=== PATIENT | male | born 1950 ===

== ENCOUNTER 2020-01-23 06:07 | Inpatient (IN) | payer MEDICARE ==
--- NOTE | 2020-01-23 06:24 | ED ---
General Adult HPI - General Chief complaint: Recheck/Abnormal Lab/Rx Stated complaint: lab recheck Time Seen by Provider: 01/23/20 06:09 Source: patient, EMS, RN notes reviewed, old records reviewed Mode of arrival: EMS Limitations: no limitations - History of Present Illness Initial comments: Patient is a 70-year-old male presents emergency department today with chief complaint of positive covid test. Patient lives in [facility] and there is been a known outbreak at this care facility. Patient denies any significant symptoms including cough shortness of breath nausea or vomiting. He reports he's been eating and drinking well. Patient was reportedly sent here for further evaluation and quarantine until negative Covid testing to return back to the rehab facility. Patient does have underlying history of dementia otherwise past medical history is difficult to obtain. - Related Data Home Medications Medication Instructions Recorded Confirmed Acetaminophen Tab [Tylenol] 650 mg PO Q4H PRN 01/23/20 01/23/20 Acetaminophen Tab [Tylenol] 650 mg PO TID@0700,1200,1700 01/23/20 01/23/20 Apixaban [Eliquis] 5 mg PO BID@0700,2100 01/23/20 01/23/20 Atorvastatin [Lipitor] 20 mg PO HS 01/23/20 01/23/20 Lactobacillus Acidophilus 2 tab PO BID@1200,2100 01/23/20 01/23/20 [Acidophilus] Magnesium Hydroxide [Milk of 2,400 mg PO DAILY PRN 01/23/20 01/23/20 Magnesia] Med Plus 60 ml PO TID@0700,1200,1700 01/23/20 01/23/20 Memantine [Namenda] 10 mg PO BID@0700,2100 01/23/20 01/23/20 Allergies Allergy/AdvReac Type Severity Reaction Status Date / Time No Known Allergies Allergy Verified 01/23/20 06:35 Review of Systems ROS Statement: Those systems with pertinent positive or pertinent negative responses have been documented in the HPI. ROS Other: All systems not noted in ROS Statement are negative. Past Medical History Past Medical History: Unable to Obtain History of Any Multi-Drug Resistant Organisms: None Reported Past Surgical History: Unable to Obtain Past Psychological History: No Psychological Hx Reported Smoking Status: Former smoker Past Alcohol Use History: None Reported Past Drug Use History: None Reported General Exam - General Exam Comments Initial Comments: This is a pleasant 70-year-old male. Resting comfortably in bed. Appears in no distress. Patient does have underlying dementia Limitations: no limitations General appearance: alert, in no apparent distress Head exam: Present: atraumatic, normocephalic, normal inspection Eye exam: Present: normal appearance, PERRL, EOMI. Absent: scleral icterus, conjunctival injection, periorbital swelling ENT exam: Present: normal exam, normal oropharynx, mucous membranes moist Neck exam: Present: normal inspection. Absent: tenderness, meningismus, lymphadenopathy Respiratory exam: Present: normal lung sounds bilaterally. Absent: respiratory distress, wheezes, rales, rhonchi, stridor Cardiovascular Exam: Present: regular rate, normal rhythm, normal heart sounds. Absent: systolic murmur, diastolic murmur, rubs, gallop, clicks GI/Abdominal exam: Present: soft, normal bowel sounds. Absent: distended, tenderness, guarding, rebound, rigid Extremities exam: Present: normal inspection, full ROM, normal capillary refill. Absent: tenderness, pedal edema, joint swelling, calf tenderness Back exam: Present: normal inspection Neurological exam: Present: alert, oriented X3, CN II-XII intact Psychiatric exam: Present: normal affect, normal mood Skin exam: Present: warm, dry, intact, normal color. Absent: rash Course Vital Signs 01/23/20 06:12 Temperature 98 F Pulse Rate 82 Respiratory 18 Rate Blood Pressure 131/93 O2 Sat by Pulse 97 Oximetry Medical Decision Making - Medical Decision Making 70-year-old male presents from [facility] with complaints of positive coma test. Denies any significant symptoms. He does have underlying history of dementia. Patient's chest x-ray shows evidence of patchy infiltrates consistent with Coban 19 infection. We will put the Patient on Rocephin to cover for any bacterial source as per protocol. Patient is returned IV fluids. Discussed. Dr. Alexander Discussed the Case with Dr. Phoenix Agrees to Admission. - Radiology Data Radiology results: report reviewed Chest x-ray shows low lung volumes with patchy right basilar acute infiltrate or rectal atelectasis. Disposition Clinical Impression: COVID-19, Pulmonary infiltrates on CXR Disposition: ADMITTED IP TO THIS HOSP Condition: Stable Is patient prescribed a controlled substance at d/c from ED?: No Referrals: Jordan Rojas MD [Primary Care Provider] - 1-2 days Time of Disposition: 07:27
--- NOTE | 2020-01-23 07:02 | XR ---
EXAMINATION TYPE: XR chest 1V DATE OF EXAM: 01/23/2020 COMPARISON: NONE HISTORY: covid positive, no symptoms. TECHNIQUE: Single AP portable frontal upright view of the chest is obtained. FINDINGS: There is low lung volumes with patchy right basilar opacity. No pleural effusion or pneumo thorax seen bilaterally. The cardiac silhouette size is upper limits of normal with dual-lead pacemak er. Degenerative change left glenohumeral joint. Colonic interposition incidentally noted. IMPRESSION: Low lung volumes with patchy right basilar acute infiltrate and/or atelectasis.
[2020-01-23] MEDS ORDERED: SODIUM CHLORIDE 0.9% 1,000 ML IV ONE (07:27)
[2020-01-23] MEDS ORDERED: NALOXONE 0.4 MG/ML 1 ML VIAL IV PRN (07:28)
[2020-01-23] MEDS ORDERED: ONDANSETRON 4 MG/2 ML VIAL IVP PRN (07:28)
[2020-01-23] MEDS ORDERED: HYDROcodone/APAP 5-325MG 1 EACH TAB PO PRN (07:28)
[2020-01-23] MEDS ORDERED: ACETAMINOPHEN TAB 325 MG TAB PO PRN (07:28)
[2020-01-23] MEDS ORDERED: IBUPROFEN 400 MG TAB PO PRN (07:28)
[2020-01-23] MEDS ORDERED: MAGNESIUM HYDROXIDE 2,400 MG/10 ML CUP PO PRN (07:29)
[2020-01-23] MEDS: SODIUM CHLORIDE 0.9% 1,000 ML IV SCH ×2 (08:20→16:40)
[2020-01-23 08:31] LABS: Basophils # (A) 0.1 k/uL (0-0.2); Basophils % (A) 2 %; Eosinophils # (A) 0.3 k/uL (0-0.7); Eosinophils % (A) 4 %; HCT 52.1 % (39.0-53.0); HGB 16.9 gm/dL (13.0-17.5); Lymphocytes # (A) 1.1 k/uL (1.0-4.8); Lymphocytes % (A) 15 %; MCH 30.9 pg (25.0-35.0); MCHC 32.5 g/dL (31.0-37.0); MCV 95.2 fL (80.0-100.0); Mean Platelet Volume 8.8; Monocytes # (A) 0.6 k/uL (0-1.0); Monocytes % (A) 8 %; Neutrophils # (A) 4.8 k/uL (1.3-7.7); Neutrophils % (A) 68 %; Platelet Count 162 k/uL (150-450); RBC 5.48 m/uL (4.30-5.90); RDW 13.7 % (11.5-15.5); WBC 7.1 k/uL (3.8-10.6)
[2020-01-23 10:20] LABS: ALT 32 U/L (4-49); AST 31 U/L (17-59); African American GFR (CKD) >90 (>60 ml/min/1.73 sqM); Albumin 3.7 g/dL (3.5-5.0); Albumin/Globulin Ratio 1.3; Alkaline Phosphatase 81 U/L (38-126); Anion Gap 5 mmol/L; Blood Urea Nitrogen 14 mg/dL (9-20); Calcium 8.8 mg/dL (8.4-10.2); Carbon Dioxide 27 mmol/L (22-30); Chloride 108 mmol/L (98-107); Globulin 2.9 g/dL; Glucose 130 mg/dL (74-99); LDH 455 U/L (313-618); Non-African American GFR(CKD) 88 (>60 ml/min/1.73 sqM); Potassium 4.5 mmol/L (3.5-5.1); Sodium 140 mmol/L (137-145); Total Bilirubin 0.7 mg/dL (0.2-1.3); Total Protein 6.6 g/dL (6.3-8.2)
[2020-01-23 10:22] LABS: D-Dimer 0.36 mg/L FEU (<0.60); INR 1.1 (<1.2); Prothrombin Time 10.8 sec (9.0-12.0)
[2020-01-23 10:33] LABS: C Reactive Protein <5.0 mg/L (<10.0)
[2020-01-23] MEDS: PANTOPRAZOLE 40 MG/10 ML VIAL IV SCH (10:38)
[2020-01-23] MEDS ORDERED: LORazepam 2 MG/ML INJ IV STA (11:13)
[2020-01-23] MEDS ORDERED: [UNRECOGNIZED DRUG - OTHER] PO SCH (12:00)
[2020-01-23 15:22] LABS: Ferritin 399.8 ng/mL (22.0-322.0)
[2020-01-23] MEDS: LACTOBACILLUS ACIDOPH & BULGAR 1 EACH PACKET PO SCH ×2 (15:56→20:33)
[2020-01-23] MEDS: ATORVASTATIN 20 MG TAB PO SCH (20:33)
[2020-01-23] MEDS: MEMANTINE 10 MG TAB PO SCH (20:33)
[2020-01-23] MEDS: APIXABAN 5 MG TAB PO SCH (20:33)
--- NOTE | 2020-01-23 22:50 | P.HPIM ---
History of Present Illness H&P Date: 01/23/20 Chief Complaint: COVID positive History of presenting complaint: This is a 70-year-old patient resident of [facility]. Chronic stable medical conditions include anxiety, BPH, dementia, hyperlipidemia, permanent pacemaker, gait dysfunction, hyperlipidemia, atrial fibrillation. Patient tested positive for COVID 19 via PCR. Patient does not have any new symptoms. No reported cough shortness of breath nausea vomiting. Patient oral intake has been fair. Patient has some baseline cognitive impairment. Unable to give a detailed history. The [facility] facility has no ways of keeping the patient under quarantine. Hence patient be transferred down here. Review of systems: GEN.: None EYES: None HEENT: None NECK: None RESPIRATORY: None CARDIOVASCULAR: None GASTROINTESTINAL: None GENITOURINARY: None MUSCULOSKELETAL: Some joint pains LYMPHATICS: None HEMATOLOGICAL: None PSYCHIATRY: Forgetful NEUROLOGICAL: None Past medical history to include: Anxiety, BPH, dementia, hyperlipidemia, permanent pacemaker, gait dysfunction, hypertension, atrial fibrillation, medical debility Social history: Resident at [facility]. Needs assistance with all ADLs. Can't feed himself. On a dysphagia chopped diet. Stop smoking in 2009. Smoked for many years. Physical examination: VITAL SIGNS: 98, 82, 18, 131/93, 97% room air GENERAL: BMI 25.7, laying in bed, not in distress. EYES: Pupils equal. Conjunctiva normal. HEENT: External appearance of nose and ears normal, oral cavity grossly normal. NECK: JVD not raised; masses not palpable. HEART: First and second heart sounds are normal; no edema. LUNGS: Respiratory rate increased; decreased breath sounds. ABDOMEN: Soft, nontender, liver spleen not palpable, no masses palpable. PSYCH: Patient able tonsil simple question]l. MUSKO skeletal: Evidence of OA NEUROLOGICAL: Cranial nerves grossly intact; no facial asymmetry, power and sensation grossly intact. LYMPHATICS: No lymph nodes palpable in the axilla and neck INVESTIGATIONS, reviewed in the clinical context: White count 7.1 hemoglobin 16.9 platelets 162 d-dimer 0.36 potassium 4.5 creatinine 0.85 Ferritin 399 LDH 455 CRP less than 5 pro-calcitonin 0.06 EKG tracing personally reviewed by me-paced rhythm Chest x-ray film personally reviewed by me-right basilar infiltrate Assessment: -Asymptomatic COVID 19 pneumonia. Patient has no fever no cough no shortness of breath no hypoxia. -Anxiety not otherwise specified -BPH -Major cognitive impairment from late-onset dose of his dementia -GERD -Permanent pacemaker -Tolerating a dysfunction -Essential hypertension -Persistent atrial fibrillation -CODE STATUS DO NOT RESUSCITATE Plan: Home medications were continued. Continue indication for any other medications for the COVID 19. Repeat testing will be done tomorrow. COVID 19 precautions are to continue. Past Medical History Past Medical History: Atrial Fibrillation, Cancer, Dementia, Hyperlipidemia, Hypertension, Prostate Disorder, Vascular Disorder Additional Past Medical History / Comment(s): Vascular dementia, dysphagia, pt falls/wanders, BPH/prostate cancer with surgery, UTI-recent and completed antibiotic, incontinent of urine/stool History of Any Multi-Drug Resistant Organisms: None Reported Past Surgical History: Pacemaker, Prostate Surgery Additional Past Surgical History / Comment(s): Prostate surgery for prostate cancer-took spot out. Past Anesthesia/Blood Transfusion Reactions: No Reported Reaction Type of Cardiac Device: Permanent Pacemaker Device Placement Date:: about 2009 Smoking Status: Former smoker - Past Family History Father Family Medical History: Diabetes Mellitus Mother Family Medical History: Cancer Medications and Allergies Home Medications Medication Instructions Recorded Confirmed Type Acetaminophen Tab [Tylenol] 650 mg PO Q4H PRN 01/23/20 01/23/20 History Acetaminophen Tab [Tylenol] 650 mg PO TID@0700,1200,1700 01/23/20 01/23/20 History Apixaban [Eliquis] 5 mg PO BID@0700,2100 01/23/20 01/23/20 History Atorvastatin [Lipitor] 20 mg PO HS 01/23/20 01/23/20 History Lactobacillus Acidophilus 2 tab PO BID@1200,2100 01/23/20 01/23/20 History [Acidophilus] Magnesium Hydroxide [Milk of 2,400 mg PO DAILY PRN 01/23/20 01/23/20 History Magnesia] Med Plus 60 ml PO TID@0700,1200,1700 01/23/20 01/23/20 History Memantine [Namenda] 10 mg PO BID@0700,2100 01/23/20 01/23/20 History Allergies Allergy/AdvReac Type Severity Reaction Status Date / Time No Known Allergies Allergy Verified 01/23/20 06:35 Physical Exam Vitals: Vital Signs Temp Pulse Pulse Resp BP BP Pulse Ox 01/23/20 19:46 97 20 01/23/20 19:37 100.1 F H 97 20 127/73 95 01/23/20 16:32 97.5 F L 107 H 18 127/84 97 01/23/20 16:16 98.4 F 78 16 105/71 96 01/23/20 16:00 98.4 F 78 16 105/71 96 01/23/20 10:38 98 F 98 16 126/93 96 01/23/20 08:21 98.4 F 102 H 15 129/79 99 01/23/20 06:12 98 F 82 18 131/93 97 Intake and Output 01/23/20 01/23/20 01/23/20 06:59 14:59 22:59 Other: Voiding Method Diaper # Voids 1 Weight 90.718 kg 90.718 kg Results CBC & Chem 7: 01/23/20 08:19 01/23/20 09:18 Labs: Abnormal Lab Results - Last 24 Hours (Table) 01/23/20 Range/Units 09:18 Chloride 108 H (98-107) mmol/L Glucose 130 H (74-99) mg/dL Ferritin 399.8 H (22.0-322.0) ng/mL Thrombosis Risk Factor Assmnt - Choose All That Apply Any of the Below Risk Factors Present?: Yes Other Risk Factors: Yes Each Risk Factor Represents 2 Points: Age 61-74 years, Malignancy Other congenital or acquired thrombophilia - If yes, enter type in comment: No Thrombosis Risk Factor Assessment Total Risk Factor Score: 4 Thrombosis Risk Factor Assessment Level: Moderate Risk
[2020-01-24] MEDS: SODIUM CHLORIDE 0.9% 1,000 ML IV SCH ×2 (04:56→14:54)
[2020-01-24] MEDS: APIXABAN 5 MG TAB PO SCH ×3 (06:54→21:06)
[2020-01-24] MEDS: PANTOPRAZOLE 40 MG/10 ML VIAL IV SCH (06:54)
[2020-01-24] MEDS: MEMANTINE 10 MG TAB PO SCH ×3 (06:54→21:06)
[2020-01-24] MEDS: LACTOBACILLUS ACIDOPH & BULGAR 1 EACH PACKET PO SCH ×2 (11:37→20:44)
[2020-01-24] MEDS ORDERED: ZIPRASIDONE 20 MG VIAL IM STA (16:46)
[2020-01-24] MEDS: ATORVASTATIN 20 MG TAB PO SCH (20:44)
[2020-01-24] MEDS: QUEtiapine 25 MG TAB PO SCH ×2 (20:44→21:06)
--- NOTE | 2020-01-24 23:08 | P.PN ---
Progress Note - Text Progress Note Date: 01/24/20 Chief Complaint: COVID positive History of presenting complaint: This is a 70-year-old patient resident of [facility]. Chronic stable medical conditions include anxiety, BPH, dementia, hyperlipidemia, permanent pacemaker, gait dysfunction, hyperlipidemia, atrial fibrillation. Patient tested positive for COVID 19 via PCR. Patient does not have any new symptoms. No reported cough shortness of breath nausea vomiting. Patient oral intake has been fair. Patient has some baseline cognitive impairment. Unable to give a detailed history. The [facility] facility has no ways of keeping the patient under quarantine. Hence patient be transferred down here. Admitted with asymptomatic COVID 19 pneumonia. Today-has a sitter. Was a bit agitated this afternoon. Senokot was added. 1 dose of Geodon 10 mg to be given late afternoon. Oral intake 25-50% Progress U of systems was attempted Active Medications Acetaminophen (Acetaminophen Tab 325 Mg Tab) 650 mg PO Q6HR PRN PRN Reason: Mild Pain or Fever > 100.5 Hydrocodone Bitart/Acetaminophen (Hydrocodone/Apap 5-325mg 1 Each Tab) 1 each PO Q4HR PRN PRN Reason: Moderate Pain Apixaban (Apixaban 5 Mg Tab) 5 mg PO BID@0700,2100 [facility] Last Admin: 01/24/20 21:06 Dose: Not Given Documented by: Atorvastatin Calcium (Atorvastatin 20 Mg Tab) 20 mg PO HS [facility] Last Admin: 01/24/20 20:44 Dose: 20 mg Documented by: Sodium Chloride (Saline 0.9%) 1,000 mls @ 100 mls/hr IV .Q10H [facility] Last Admin: 01/24/20 14:54 Dose: Not Given Documented by: Ibuprofen (Ibuprofen 400 Mg Tab) 400 mg PO Q6HR PRN PRN Reason: Mild Pain or Fever > 100.5 Lactobacillus Acidoph/Bulgaricus (Lactobacillus Acidoph & Bulgar 1 Each Packet) 2 each PO BID@1200,2100 [facility] Last Admin: 01/24/20 20:44 Dose: 2 each Documented by: Magnesium Hydroxide (Magnesium Hydroxide 2,400 Mg/10 Ml Cup) 2,400 mg PO DAILY PRN PRN Reason: Constipation Memantine (Memantine 10 Mg Tab) 10 mg PO BID@0700,2100 [facility] Last Admin: 01/24/20 21:06 Dose: Not Given Documented by: Naloxone HCl (Naloxone 0.4 Mg/Ml 1 Ml Vial) 0.2 mg IV Q2M PRN PRN Reason: Opioid Reversal Ondansetron HCl (Ondansetron 4 Mg/2 Ml Vial) 4 mg IVP Q8HR PRN PRN Reason: Nausea And Vomiting Pantoprazole Sodium (Pantoprazole 40 Mg Tablet) 40 mg PO AC-BRKFST [facility] Quetiapine Fumarate (Quetiapine 25 Mg Tab) 12.5 mg PO BID [facility] Last Admin: 01/24/20 21:06 Dose: Not Given Documented by: Physical examination: VITAL SIGNS: 98.1, 63, 17, 136 and 72, 94% room air GENERAL: BMI 25.7, laying in bed, not in distress. EYES: Pupils equal. Conjunctiva normal. NECK: JVD not raised; masses not palpable. HEART: First and second heart sounds are normal; no edema. LUNGS: Respiratory rate increased; decreased breath sounds. ABDOMEN: Soft, nontender, liver spleen not palpable, no masses palpable. PSYCH: Answering occasional question l. INVESTIGATIONS, reviewed in the clinical context: White count 7.1 hemoglobin 16.9 platelets 162 d-dimer 0.36 potassium 4.5 creatinine 0.85 Ferritin 399 LDH 455 CRP less than 5 pro-calcitonin 0.06 EKG tracing personally reviewed by me-paced rhythm Chest x-ray film personally reviewed by me-right basilar infiltrate Assessment: -Asymptomatic COVID 19 pneumonia. Patient has no fever no cough no shortness of breath no hypoxia. -Anxiety not otherwise specified -BPH -Major cognitive impairment from late-onset dose of his dementia, with acute agitation possibly because of a new surrounding. -GERD -Permanent pacemaker -Tolerating a dysfunction -Essential hypertension -Persistent atrial fibrillation -CODE STATUS DO NOT RESUSCITATE Plan: Continue with COVID 19 restrictions. Started on Seroquel. Other medications to continue
[2020-01-25] MEDS: SODIUM CHLORIDE 0.9% 1,000 ML IV SCH ×3 (00:34→19:06)
[2020-01-25] MEDS: PANTOPRAZOLE 40 MG TABLET PO SCH (06:56)
[2020-01-25] MEDS: QUEtiapine 25 MG TAB PO SCH ×2 (06:57→19:54)
[2020-01-25] MEDS: MEMANTINE 10 MG TAB PO SCH ×2 (06:57→19:54)
[2020-01-25] MEDS: APIXABAN 5 MG TAB PO SCH ×2 (06:58→19:54)
[2020-01-25] MEDS: LACTOBACILLUS ACIDOPH & BULGAR 1 EACH PACKET PO SCH ×2 (11:43→19:54)
--- NOTE | 2020-01-25 15:45 | P.PN ---
Progress Note - Text Progress Note Date: 01/25/20 Chief Complaint: COVID positive History of presenting complaint: This is a 70-year-old patient resident of [facility]. Chronic stable medical conditions include anxiety, BPH, dementia, hyperlipidemia, permanent pacemaker, gait dysfunction, hyperlipidemia, atrial fibrillation. Patient tested positive for COVID 19 via PCR. Patient does not have any new symptoms. No reported cough shortness of breath nausea vomiting. Patient oral intake has been fair. Patient has some baseline cognitive impairment. Unable to give a detailed history. The [facility] facility has no ways of keeping the patient under quarantine. Hence patient be transferred down here. Admitted with asymptomatic COVID 19 pneumonia. Patient got agitated. Was started on Seroquel. Today-has been, today. More restful. Oral intake variable. review of systems was attempted Active Medications Acetaminophen (Acetaminophen Tab 325 Mg Tab) 650 mg PO Q6HR PRN PRN Reason: Mild Pain or Fever > 100.5 Hydrocodone Bitart/Acetaminophen (Hydrocodone/Apap 5-325mg 1 Each Tab) 1 each PO Q4HR PRN PRN Reason: Moderate Pain Last Admin: 01/25/20 06:10 Dose: 1 each Documented by: Apixaban (Apixaban 5 Mg Tab) 5 mg PO BID@0700,2100 [facility] Last Admin: 01/25/20 06:58 Dose: 5 mg Documented by: Atorvastatin Calcium (Atorvastatin 20 Mg Tab) 20 mg PO HS [facility] Last Admin: 01/24/20 20:44 Dose: 20 mg Documented by: Sodium Chloride (Saline 0.9%) 1,000 mls @ 100 mls/hr IV .Q10H [facility] Last Admin: 01/25/20 06:59 Dose: Not Given Documented by: Ibuprofen (Ibuprofen 400 Mg Tab) 400 mg PO Q6HR PRN PRN Reason: Mild Pain or Fever > 100.5 Lactobacillus Acidoph/Bulgaricus (Lactobacillus Acidoph & Bulgar 1 Each Packet) 2 each PO BID@1200,2100 [facility] Last Admin: 01/25/20 11:43 Dose: 2 each Documented by: Magnesium Hydroxide (Magnesium Hydroxide 2,400 Mg/10 Ml Cup) 2,400 mg PO DAILY PRN PRN Reason: Constipation Memantine (Memantine 10 Mg Tab) 10 mg PO BID@0700,2100 [facility] Last Admin: 01/25/20 06:57 Dose: 10 mg Documented by: Naloxone HCl (Naloxone 0.4 Mg/Ml 1 Ml Vial) 0.2 mg IV Q2M PRN PRN Reason: Opioid Reversal Ondansetron HCl (Ondansetron 4 Mg/2 Ml Vial) 4 mg IVP Q8HR PRN PRN Reason: Nausea And Vomiting Pantoprazole Sodium (Pantoprazole 40 Mg Tablet) 40 mg PO AC-BRKFST [facility] Last Admin: 01/25/20 06:56 Dose: 40 mg Documented by: Quetiapine Fumarate (Quetiapine 25 Mg Tab) 12.5 mg PO BID [facility] Last Admin: 01/25/20 06:57 Dose: 12.5 mg Documented by: Physical examination: VITAL SIGNS: 97.4, 64, 17, 114/64, 94% room air GENERAL: Laying in bed, comfortable EYES: Pupils equal. Conjunctiva normal. NECK: JVD not raised; masses not palpable. HEART: First and second heart sounds are normal; no edema. LUNGS: Respiratory rate increased; decreased breath sounds. ABDOMEN: Soft, nontender, liver spleen not palpable, no masses palpable. PSYCH: Answering occasional question. INVESTIGATIONS, reviewed in the clinical context: White count 7.1 hemoglobin 16.9 platelets 162 d-dimer 0.36 potassium 4.5 creatinine 0.85 Ferritin 399 LDH 455 CRP less than 5 pro-calcitonin 0.06 EKG tracing personally reviewed by me-paced rhythm Chest x-ray film personally reviewed by me-right basilar infiltrate Assessment: -Asymptomatic COVID 19 pneumonia. Patient has no fever no cough no shortness of breath no hypoxia. -Anxiety not otherwise specified -BPH -Major cognitive impairment from late-onset dose of his dementia, with acute agitation possibly because of a new surrounding.-Started on Seroquel -GERD -Permanent pacemaker -Tolerating a dysfunction -Essential hypertension -Persistent atrial fibrillation -CODE STATUS DO NOT RESUSCITATE Plan: Continue with COVID 19 restrictions. Continue current medication treatment plan.
[2020-01-25] MEDS: ATORVASTATIN 20 MG TAB PO SCH (19:54)
[2020-01-26] MEDS: SODIUM CHLORIDE 0.9% 1,000 ML IV SCH ×2 (05:32→13:31)
[2020-01-26] MEDS: MEMANTINE 10 MG TAB PO SCH ×2 (07:45→20:17)
[2020-01-26] MEDS: APIXABAN 5 MG TAB PO SCH ×2 (07:45→20:17)
[2020-01-26] MEDS: QUEtiapine 25 MG TAB PO SCH ×2 (07:46→20:17)
[2020-01-26] MEDS: PANTOPRAZOLE 40 MG TABLET PO SCH (07:46)
[2020-01-26] MEDS: LACTOBACILLUS ACIDOPH & BULGAR 1 EACH PACKET PO SCH ×2 (10:12→20:17)
--- NOTE | 2020-01-26 19:35 | P.PN ---
Progress Note - Text Progress Note Date: 01/26/20 Chief Complaint: COVID positive History of presenting complaint: This is a 70-year-old patient resident of [facility]. Chronic stable medical conditions include anxiety, BPH, dementia, hyperlipidemia, permanent pacemaker, gait dysfunction, hyperlipidemia, atrial fibrillation. Patient tested positive for COVID 19 via PCR. Patient does not have any new symptoms. No reported cough shortness of breath nausea vomiting. Patient oral intake has been fair. Patient has some baseline cognitive impairment. Unable to give a detailed history. The [facility] facility has no ways of keeping the patient under quarantine. Hence patient be transferred down here. Admitted with asymptomatic COVID 19 pneumonia. Patient got agitated. Was started on Seroquel.-Settle down. Today-eating well. Sitting up. Comfortable. No shortness of breath. No fever. review of systems was attempted Active Medications Acetaminophen (Acetaminophen Tab 325 Mg Tab) 650 mg PO Q6HR PRN PRN Reason: Mild Pain or Fever > 100.5 Hydrocodone Bitart/Acetaminophen (Hydrocodone/Apap 5-325mg 1 Each Tab) 1 each PO Q4HR PRN PRN Reason: Moderate Pain Last Admin: 01/25/20 06:10 Dose: 1 each Documented by: Apixaban (Apixaban 5 Mg Tab) 5 mg PO BID@0700,2100 [facility] Last Admin: 01/26/20 07:45 Dose: 5 mg Documented by: Atorvastatin Calcium (Atorvastatin 20 Mg Tab) 20 mg PO HS [facility] Last Admin: 01/25/20 19:54 Dose: 20 mg Documented by: Sodium Chloride (Saline 0.9%) 1,000 mls @ 100 mls/hr IV .Q10H [facility] Last Admin: 01/26/20 13:31 Dose: Not Given Documented by: Ibuprofen (Ibuprofen 400 Mg Tab) 400 mg PO Q6HR PRN PRN Reason: Mild Pain or Fever > 100.5 Lactobacillus Acidoph/Bulgaricus (Lactobacillus Acidoph & Bulgar 1 Each Packet) 2 each PO BID@1200,2100 [facility] Last Admin: 01/26/20 10:12 Dose: Not Given Documented by: Magnesium Hydroxide (Magnesium Hydroxide 2,400 Mg/10 Ml Cup) 2,400 mg PO DAILY PRN PRN Reason: Constipation Memantine (Memantine 10 Mg Tab) 10 mg PO BID@0700,2100 [facility] Last Admin: 01/26/20 07:45 Dose: 10 mg Documented by: Naloxone HCl (Naloxone 0.4 Mg/Ml 1 Ml Vial) 0.2 mg IV Q2M PRN PRN Reason: Opioid Reversal Ondansetron HCl (Ondansetron 4 Mg/2 Ml Vial) 4 mg IVP Q8HR PRN PRN Reason: Nausea And Vomiting Pantoprazole Sodium (Pantoprazole 40 Mg Tablet) 40 mg PO AC-BRKFST [facility] Last Admin: 01/26/20 07:46 Dose: 40 mg Documented by: Quetiapine Fumarate (Quetiapine 25 Mg Tab) 12.5 mg PO BID [facility] Last Admin: 01/26/20 07:46 Dose: 12.5 mg Documented by: Physical examination: VITAL SIGNS: 98.1, 77, 16, 98.58, 94% room air GENERAL: Sitting up in bed, comfortable EYES: Pupils equal. Conjunctiva normal. NECK: JVD not raised; masses not palpable. HEART: First and second heart sounds are normal; no edema. LUNGS: Respiratory rate increased; decreased breath sounds. ABDOMEN: Soft, nontender, liver spleen not palpable, no masses palpable. PSYCH: Answering simple questions INVESTIGATIONS, reviewed in the clinical context: Later this evening-COVID 19 P/Cr-not detected White count 7.1 hemoglobin 16.9 platelets 162 d-dimer 0.36 potassium 4.5 creatinine 0.85 Ferritin 399 LDH 455 CRP less than 5 pro-calcitonin 0.06 EKG tracing personally reviewed by me-paced rhythm Chest x-ray film personally reviewed by me-right basilar infiltrate Assessment: -Asymptomatic COVID 19 pneumonia. Patient has no fever no cough no shortness of breath no hypoxia. Repeat COVID testing is come back negative later today. -Anxiety not otherwise specified -BPH -Major cognitive impairment from late-onset dose of his dementia, with acute agitation possibly because of a new surrounding.-Started on Seroquel -GERD -Permanent pacemaker -Tolerating a dysfunction -Essential hypertension -Persistent atrial fibrillation -CODE STATUS DO NOT RESUSCITATE Plan: Continue current medication treatment plan. DC to rehab tomorrow.
[2020-01-26] MEDS: ATORVASTATIN 20 MG TAB PO SCH (20:17)
[2020-01-27] MEDS: SODIUM CHLORIDE 0.9% 1,000 ML IV SCH ×3 (00:39→19:52)
[2020-01-27] MEDS: PANTOPRAZOLE 40 MG TABLET PO SCH (07:22)
[2020-01-27] MEDS: APIXABAN 5 MG TAB PO SCH ×2 (07:22→20:00)
[2020-01-27] MEDS: QUEtiapine 25 MG TAB PO SCH ×2 (07:22→20:00)
[2020-01-27] MEDS: MEMANTINE 10 MG TAB PO SCH ×2 (07:22→20:00)
[2020-01-27] MEDS: LACTOBACILLUS ACIDOPH & BULGAR 1 EACH PACKET PO SCH ×2 (11:36→20:00)
--- NOTE | 2020-01-27 17:49 | P.PN ---
Progress Note - Text Progress Note Date: 01/27/20 Chief Complaint: COVID positive History of presenting complaint: This is a 70-year-old patient resident of [facility]. Chronic stable medical conditions include anxiety, BPH, dementia, hyperlipidemia, permanent pacemaker, gait dysfunction, hyperlipidemia, atrial fibrillation. Patient tested positive for COVID 19 via PCR. Patient does not have any new symptoms. No reported cough shortness of breath nausea vomiting. Patient oral intake has been fair. Patient has some baseline cognitive impairment. Unable to give a detailed history. The [facility] facility has no ways of keeping the patient under quarantine. Hence patient be transferred down here. Admitted with asymptomatic COVID 19 pneumonia. Patient got agitated. Was started on Seroquel.-Settle down. Today-laying in bed, comfortable. Oral intake fair. No infection symptoms. review of systems was attempted Active Medications Acetaminophen (Acetaminophen Tab 325 Mg Tab) 650 mg PO Q6HR PRN PRN Reason: Mild Pain or Fever > 100.5 Hydrocodone Bitart/Acetaminophen (Hydrocodone/Apap 5-325mg 1 Each Tab) 1 each PO Q4HR PRN PRN Reason: Moderate Pain Last Admin: 01/25/20 06:10 Dose: 1 each Documented by: Apixaban (Apixaban 5 Mg Tab) 5 mg PO BID@0700,2100 [facility] Last Admin: 01/27/20 07:22 Dose: 5 mg Documented by: Atorvastatin Calcium (Atorvastatin 20 Mg Tab) 20 mg PO HS [facility] Last Admin: 01/26/20 20:17 Dose: 20 mg Documented by: Sodium Chloride (Saline 0.9%) 1,000 mls @ 100 mls/hr IV .Q10H [facility] Last Admin: 01/27/20 11:20 Dose: Not Given Documented by: Ibuprofen (Ibuprofen 400 Mg Tab) 400 mg PO Q6HR PRN PRN Reason: Mild Pain or Fever > 100.5 Lactobacillus Acidoph/Bulgaricus (Lactobacillus Acidoph & Bulgar 1 Each Packet) 2 each PO BID@1200,2100 [facility] Last Admin: 01/27/20 11:36 Dose: 2 each Documented by: Magnesium Hydroxide (Magnesium Hydroxide 2,400 Mg/10 Ml Cup) 2,400 mg PO DAILY PRN PRN Reason: Constipation Memantine (Memantine 10 Mg Tab) 10 mg PO BID@0700,2100 [facility] Last Admin: 01/27/20 07:22 Dose: 10 mg Documented by: Naloxone HCl (Naloxone 0.4 Mg/Ml 1 Ml Vial) 0.2 mg IV Q2M PRN PRN Reason: Opioid Reversal Ondansetron HCl (Ondansetron 4 Mg/2 Ml Vial) 4 mg IVP Q8HR PRN PRN Reason: Nausea And Vomiting Pantoprazole Sodium (Pantoprazole 40 Mg Tablet) 40 mg PO AC-[id number] [facility] Last Admin: 01/27/20 07:22 Dose: 40 mg Documented by: Quetiapine Fumarate (Quetiapine 25 Mg Tab) 12.5 mg PO BID [facility] Last Admin: 01/27/20 07:22 Dose: 12.5 mg Documented by: Physical examination: VITAL SIGNS: 96.9, 70, 18, 115/68, 96% room air GENERAL: Laying in bed comfortable EYES: Pupils equal. Conjunctiva normal. NECK: JVD not raised; masses not palpable. HEART: First and second heart sounds are normal; no edema. LUNGS: Respiratory rate normal; decreased breath sounds. ABDOMEN: Soft, nontender, liver spleen not palpable, no masses palpable. PSYCH: Answering simple questions INVESTIGATIONS, reviewed in the clinical context: -COVID 19 P/Cr-not detected White count 7.1 hemoglobin 16.9 platelets 162 d-dimer 0.36 potassium 4.5 creatinine 0.85 Ferritin 399 LDH 455 CRP less than 5 pro-calcitonin 0.06 EKG tracing personally reviewed by me-paced rhythm Chest x-ray film personally reviewed by me-right basilar infiltrate Assessment: -Asymptomatic COVID 19 pneumonia. Patient has no fever no cough no shortness of breath no hypoxia. Repeat COVID testing is come back negative -Anxiety not otherwise specified -BPH -Major cognitive impairment from late-onset dose of his dementia, with acute agitation possibly because of a new surrounding.-Started on Seroquel -GERD -Permanent pacemaker -Tolerating a dysfunction -Essential hypertension -Persistent atrial fibrillation -CODE STATUS DO NOT RESUSCITATE Plan: Continue current medication. Pending insurance authorization for transfer.
[2020-01-27] MEDS: ATORVASTATIN 20 MG TAB PO SCH (20:00)
[2020-01-28] MEDS: MEMANTINE 10 MG TAB PO SCH (08:18)
[2020-01-28] MEDS: SODIUM CHLORIDE 0.9% 1,000 ML IV SCH ×2 (08:18→18:07)
[2020-01-28] MEDS: QUEtiapine 25 MG TAB PO SCH (08:18)
[2020-01-28] MEDS: APIXABAN 5 MG TAB PO SCH (08:18)
[2020-01-28] MEDS: PANTOPRAZOLE 40 MG TABLET PO SCH (08:18)
[2020-01-28] MEDS: LACTOBACILLUS ACIDOPH & BULGAR 1 EACH PACKET PO SCH (12:13)
--- NOTE | 2020-01-28 13:53 | P.DS ---
Providers Date of admission: 01/23/20 07:28 Expected date of discharge: 01/28/20 Attending physician: Miller Garrett Primary care physician: Jordan Rojas [facility] Course: Chief Complaint: COVID positive History of presenting complaint: This is a 70-year-old patient resident of [facility]. Chronic stable medical conditions include anxiety, BPH, dementia, hyperlipidemia, permanent pacemaker, gait dysfunction, hyperlipidemia, atrial fibrillation. Patient tested positive for COVID 19 via PCR. Patient does not have any new symptoms. No reported cough shortness of breath nausea vomiting. Patient oral intake has been fair. Patient has some baseline cognitive impairment. Unable to give a detailed history. The [facility] facility has no ways of keeping the patient under quarantine. Hence patient be transferred down here. Admitted with asymptomatic COVID 19 pneumonia. Patient got agitated. Was started on Seroquel.-Settle down. Today-l comfortable. Eating. No respiratory symptoms. No fever. Physical examination: VITAL SIGNS: 98.4, 16, 17, 106/65, 96% room air GENERAL: Laying in bed comfortable EYES: Pupils equal. Conjunctiva normal. NECK: JVD not raised; masses not palpable. HEART: First and second heart sounds are normal; no edema. LUNGS: Respiratory rate normal; decreased breath sounds. ABDOMEN: Soft, nontender, liver spleen not palpable, no masses palpable. PSYCH: Answering simple questions INVESTIGATIONS, reviewed in the clinical context: -COVID 19 P/Cr-not detected-January 25 White count 7.1 hemoglobin 16.9 platelets 162 d-dimer 0.36 potassium 4.5 creati nine 0.85 Ferritin 399 LDH 455 CRP less than 5 pro-calcitonin 0.06 EKG tracing personally reviewed by me-paced rhythm Chest x-ray film personally reviewed by me-right basilar infiltrate Assessment: -Asymptomatic COVID 19 pneumonia. Patient has no fever no cough no shortness of breath no hypoxia. Repeat COVID testing negative [January 25] -Anxiety not otherwise specified -BPH -Major cognitive impairment from late-onset dose of his dementia, with acute agitation possibly because of a new surrounding.-Started on Seroquel -GERD -Permanent pacemaker -Tolerating a dysfunction -Essential hypertension -Persistent atrial fibrillation -CODE STATUS DO NOT RESUSCITATE Disposition: [facility] Patient Condition at Discharge: Stable Plan - Discharge Summary Discharge Rx Participant: No New Discharge Prescriptions: New QUEtiapine [SEROquel] 12.5 mg PO BID tab Continue Acetaminophen Tab [Tylenol] 650 mg PO Q4H PRN PRN Reason: GENERAL DISCOMFORT Med Plus 60 ml PO TID@0700,1200,1700 Memantine [Namenda] 10 mg PO BID@0700,2100 Lactobacillus Acidophilus [Acidophilus] 2 tab PO BID@1200,2100 Apixaban [Eliquis] 5 mg PO BID@0700,2100 Atorvastatin [Lipitor] 20 mg PO HS Magnesium Hydroxide [Milk of Magnesia] 2,400 mg PO DAILY PRN PRN Reason: Constipation Discontinued Acetaminophen Tab [Tylenol] 650 mg PO TID@0700,1200,1700 Discharge Medication List Acetaminophen Tab [Tylenol] 650 mg PO Q4H PRN 01/23/20 [History] Apixaban [Eliquis] 5 mg PO BID@0700,2100 01/23/20 [History] Atorvastatin [Lipitor] 20 mg PO HS 01/23/20 [History] Lactobacillus Acidophilus [Acidophilus] 2 tab PO BID@1200,2100 01/23/20 [History] Magnesium Hydroxide [Milk of Magnesia] 2,400 mg PO DAILY PRN 01/23/20 [History] Med Plus 60 ml PO TID@0700,1200,1700 01/23/20 [History] Memantine [Namenda] 10 mg PO BID@0700,2100 01/23/20 [History] QUEtiapine [SEROquel] 12.5 mg PO BID tab 01/28/20 [Rx] Follow up Appointment(s)/Referral(s): Jordan Rojas MD [Primary Care Provider] - 1-2 Days
[2020-01-28 15:29] VITALS: BP 125/73; PULSE 79; RESP 16; TEMP 97.9
== END 2020-01-28 18:02 | disposition home health service (06) | DRG 177 ==
LOC: EC 06:07 → 4SSUR 07:28
PROVIDERS: ADMIT Hospitalist; ATTEND Hospitalist
DX: U07.1 COVID-19 (principal); J12.89 Other viral pneumonia; I48.19 Other persistent atrial fibrillation; F01.50 Vascular dementia, unspecified severity, without behavioral disturbance, psychotic disturbance, mood disturbance, and anxiety; K21.9 Gastro-esophageal reflux disease without esophagitis; N40.0 Benign prostatic hyperplasia without lower urinary tract symptoms; E78.5 Hyperlipidemia, unspecified; F41.9 Anxiety disorder, unspecified; I10 Essential (primary) hypertension; R13.10 Dysphagia, unspecified; R32 Unspecified urinary incontinence; R26.9 Unspecified abnormalities of gait and mobility; R53.81 Other malaise; R15.9 Full incontinence of feces; R45.1 Restlessness and agitation; Z66 Do not resuscitate; Z79.01 Long term (current) use of anticoagulants; Z79.899 Other long term (current) drug therapy; Z85.46 Personal history of malignant neoplasm of prostate; Z87.891 Personal history of nicotine dependence; Z95.0 Presence of cardiac pacemaker; Z87.440 Personal history of urinary (tract) infections; Z91.81 History of falling; Z98.890 Other specified postprocedural states; Z83.3 Family history of diabetes mellitus; Z80.9 Family history of malignant neoplasm, unspecified
CPT/HCPCS: 71045; 80053; 82728; 83605; 83615; 84145; 85025; 85379; 85610; 85730; 86140; 87040; 87635; 93005; 96365; 96375; 99285